=== PATIENT | male | born 1990 | race Caucasian/White ===

== ENCOUNTER 2018-05-16 13:05 | Inpatient (IN) | payer BC ==
[2018-05-16 14:06] VITALS: BMI 23.5
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
[2018-05-16] MEDS ORDERED: ACETAMINOPHEN 325 MG TABLET (FP) PO PRN (16:05)
[2018-05-16] MEDS ORDERED: P-EPHED 60MG/TRIPROLIDI 2.5MG TABLET PO PRN (16:05)
[2018-05-16] MEDS ORDERED: MAG HYDROX/AL HYDROX/SIMETH 30 ML UNIT-DOSE CUP PO PRN (16:05)
[2018-05-16] MEDS ORDERED: MAGNESIUM HYDROX 2400MG/30ML ORAL SUSPENSION 30 ML CUP PO PRN (16:05)
[2018-05-16] MEDS ORDERED: MENTHOL/PHENOL 1 EACH UD MM PRN (16:05)
[2018-05-16] MEDS ORDERED: LOPERAMIDE HCL 2 MG CAPSULE PO PRN (16:05)
[2018-05-16] MEDS ORDERED: MAGNESIUM CITRATE 300 ML BOTTLE PO PRN (16:05)
[2018-05-16] MEDS ORDERED: IBUPROFEN 400 MG TABLET (FP) PO PRN (16:05)
[2018-05-16] MEDS ORDERED: guaiFENesin/D-METHORPHAN HB 10 ML UNIT-DOSE CUPS PO PRN (16:05)
[2018-05-16] MEDS ORDERED: ALBUTEROL SO4 8 GM HFA INHALER IH PRN (16:08)
[2018-05-16] MEDS ORDERED: ALBUTEROL SO4 2.5/IPRATROPIUM 0.5 INH SOL 3 ML VIAL.NEB. NEB PRN (16:09)
[2018-05-16] MEDS ORDERED: METHADONE HCL 10 MG TABLET (FOR DETOX USE ONLY) PO ONE ×2 (17:00→23:00)
[2018-05-16] MEDS ORDERED: diazePAM 5 MG TABLET PO ONE (17:00)
[2018-05-16] MEDS: CYCLOBENZAPRINE HCL 10 MG TABLET (FP) PO PRN (22:17)
[2018-05-16] MEDS: diazePAM 5 MG TABLET PO SCH (22:17)
[2018-05-16] MEDS: THIAMINE HCL 100 MG TABLET (FP) PO SCH (22:18)
[2018-05-16] MEDS: cloNIDine HCL 0.1 MG TABLET PO SCH (22:18)
[2018-05-17 00:28] LABS: URINE APPEARANCE CLEAR; URINE BILIRUBIN NEGATIVE (<2.0 mg/dL); URINE COLOR YELLOW; URINE GLUCOSE (UA) NEGATIVE (NEGATIVE); URINE KETONE TRACE (NEGATIVE); URINE LEUK ESTERASE NEGATIVE (NEGATIVE); URINE NITRITE NEGATIVE (NEGATIVE); URINE PROTEIN NEGATIVE (NEGATIVE); URINE UROBILINOGEN NEGATIVE mg/dL (0.2-1.0)
[2018-05-17] MEDS: diazePAM 5 MG TABLET PO SCH ×3 (05:15→22:17)
[2018-05-17] MEDS ORDERED: METHADONE HCL 10 MG TABLET (FOR DETOX USE ONLY) PO SCH (10:00)
[2018-05-17] MEDS: cloNIDine HCL 0.1 MG TABLET PO SCH ×2 (10:06)
[2018-05-17] MEDS: diazePAM 5 MG TABLET PO PRN ×2 (10:06→16:57)
[2018-05-17] MEDS: PRENATAL VITAMINS W/ FOLIC ACID TABLET (FP) PO SCH (10:06)
--- NOTE | 2018-05-17 11:29 | EKG ---
Test Reason : Blood Pressure : / mmHG Vent. Rate : 069 BPM Atrial Rate : 069 BPM P-R Int : 154 ms QRS Dur : 092 ms QT Int : 396 ms P-R-T Axes : 077 067 059 degrees QTc Int : 424 ms SINUS RHYTHM WITH MARKED SINUS ARRHYTHMIA OTHERWISE NORMAL ECG NO PREVIOUS ECGS AVAILABLE Confirmed by KEDAR HART, ALTAF ([id number]) on 05/17/2018 11:28:51 AM Referred By: Confirmed By:ALTAF THACKER MD
--- NOTE | 2018-05-17 12:17 | PN ---
[facility] CIWA - CIWA Score Nausea/Vomitin Muscle Tremors: 4-Moderate,w/Arms Extend Anxiety: 4-Mod. Anxious/Guarded Agitation: 4-Moderately Restless Paroxysmal Sweats: 3 Orientation: 0-Oriented Tacttile Disturbances: 0-None Auditory Disturbances: 0-None Visual Disturbances: 0-None Headache: 0-None Present CIWA-Ar Total Score: 17 S COWS - Scale Resting Pulse: 0= [place] 80 or Below Sweatin=Flushed/Facial Moisture Restless Observation: 3= Extraneous Movement Pupil Size: 0= Normal to Room Light Bone or Joint Aches: 2= Severe Diffuse Aches Runny Nose/ Eye Tearin= Runny Nose/Eyes GI Upset > 30mins: 2= Nausea/Diarrhea Tremor Observation of Outstretched Hands: 2= Slight Tremor Visible Yawning Observation: 1= 1-2x During Session Anxiety or Irritability: 2=Irritable/Anxious Goose Flesh Skin: 0=Smooth Skin COWS Score: 16 [facility] Progress Note (SOAP) Subjective: Sweating, body aches, chills, interrupted sleep Objective: 05/17/18 12:16 Last Vital Signs Temp Pulse Resp BP Pulse Ox 96.3 F L 61 18 87/58 L 05/17/18 09:21 05/17/18 09:21 05/17/18 09:21 05/17/18 09:21 Hypotension: 87/58 Laboratory Tests 05/16/18 23:00 Urine Color Yellow Urine Appearance Clear Urine pH 6.0 Ur Specific [place] 1.031 Urine Protein Negative Urine Glucose (UA) Negative Urine Ketones Trace H Urine Blood Negative Urine Nitrite Negative Urine Bilirubin Negative Urine Urobilinogen Negative Ur Leukocyte Esterase Negative UA result reviewed CBC/CMP/RPR result in progress Assessment: 05/17/18 12:17 Withdrawal symptoms Hypotension noted Plan: Continue detox Hypotension: asymptomatic, encouraged PO water intake, changed clonidine 0.1mg PO BID to q8hr prn (hold if b/p <110/70)
[2018-05-17 14:17] LABS: HEMATOCRIT 39.1 % (35.4-49); HEMOGLOBIN 12.8 GM/dL (11.7-16.9); MCH 27.3 pg (25.7-33.7); MCHC 32.7 g/dl (32.0-35.9); MEAN CELL VOLUME 83.3 fl (80-96); PLATELET COUNT 279 K/MM3 (134-434); RBC 4.69 M/mm3 (4.00-5.60)
[2018-05-17 15:02] LABS: ALBUMIN 3.6 g/dl (3.4-5.0); ALK PHOS 60 U/L (45-117); ANION GAP 6 MMOL/L (8-16); BILIRUBIN,TOTAL 0.3 mg/dL (0.2-1); BLOOD UREA NITROGEN 21 mg/dL (7-18); CALCIUM 8.8 mg/dL (8.5-10.1); CHLORIDE 105 mmol/L (98-107); CO2 30 mmol/L (21-32); CREATININE 0.8 mg/dL (0.55-1.3); GLUCOSE,RANDOM 83 mg/dL (74-106); POTASSIUM 4.3 mmol/L (3.5-5.1); SGOT/AST 15 U/L (15-37); SGPT/ALT 15 U/L (13-61); SODIUM 141 mmol/L (136-145); TOT PROT 6.5 g/dl (6.4-8.2)
[2018-05-17] MEDS ORDERED: cloNIDine HCL 0.1 MG TABLET PO PRN (16:00)
[2018-05-17] MEDS: THIAMINE HCL 100 MG TABLET (FP) PO SCH (22:17)
[2018-05-17] MEDS: MELATONIN 5 MG TABLETS PO PRN (22:17)
[2018-05-18] MEDS: CYCLOBENZAPRINE HCL 10 MG TABLET (FP) PO PRN ×2 (04:26→14:15)
[2018-05-18] MEDS: diazePAM 5 MG TABLET PO PRN ×4 (04:26→23:47)
[2018-05-18] MEDS ORDERED: METHADONE HCL 5 MG TABLET (FOR DETOX USE ONLY) PO SCH (10:00)
[2018-05-18] MEDS: diazePAM 5 MG TABLET PO SCH ×2 (10:19→22:26)
[2018-05-18] MEDS: PRENATAL VITAMINS W/ FOLIC ACID TABLET (FP) PO SCH (10:19)
--- NOTE | 2018-05-18 12:42 | PN ---
S CIWA - CIWA Score Nausea/Vomitin Muscle Tremors: 3 Anxiety: 3 Agitation: 3 Paroxysmal Sweats: 3 Orientation: 0-Oriented Tacttile Disturbances: 0-None Auditory Disturbances: 0-None Visual Disturbances: 0-None Headache: 1-Very Mild CIWA-Ar Total Score: 15 [facility] COWS - Scale Resting Pulse: 0= [place] 80 or Below Sweatin= Chills/Flushing Restless Observation: 3= Extraneous Movement Pupil Size: 0= Normal to Room Light Bone or Joint Aches: 2= Severe Diffuse Aches Runny Nose/ Eye Tearin= Runny Nose/Eyes GI Upset > 30mins: 1= Stomach Cramp Tremor Observation of Outstretched Hands: 2= Slight Tremor Visible Yawning Observation: 1= 1-2x During Session Anxiety or Irritability: 2=Irritable/Anxious Goose Flesh Skin: 0=Smooth Skin COWS Score: 14 S Progress Note (SOAP) Subjective: Sweating, body ache, interrupted sleep Objective: 05/18/18 12:41 Last Vital Signs Temp Pulse Resp BP Pulse Ox 96.9 F L 69 18 109/68 05/18/18 09:08 05/18/18 09:08 05/18/18 09:08 05/18/18 09:08 Laboratory Tests 05/16/18 05/17/18 05/17/18 23:00 07:15 07:15 WBC 8.0 RBC 4.69 Hgb 12.8 Hct 39.1 MCV 83.3 MCH 27.3 MCHC 32.7 RDW 14.0 Plt Count 279 MPV 8.0 Sodium 141 Potassium 4.3 Chloride 105 Carbon Dioxide 30 Anion Gap 6 L BUN 21 H Creatinine 0.8 Creat Clearance w eGFR > 60 Random Glucose 83 Calcium 8.8 Total Bilirubin 0.3 AST 15 ALT 15 Alkaline Phosphatase 60 Total Protein 6.5 Albumin 3.6 Urine Color Yellow Urine Appearance Clear Urine pH 6.0 Ur Specific [place] 1.031 Urine Protein Negative Urine Glucose (UA) Negative Urine Ketones Trace H Urine Blood Negative Urine Nitrite Negative Urine Bilirubin Negative Urine Urobilinogen Negative Ur Leukocyte Esterase Negative RPR Titer 05/17/18 07:15 WBC RBC Hgb Hct MCV MCH MCHC RDW Plt Count MPV Sodium Potassium Chloride Carbon Dioxide Anion Gap BUN Creatinine Creat Clearance w eGFR Random Glucose Calcium Total Bilirubin AST ALT Alkaline Phosphatase Total Protein Albumin Urine Color Urine Appearance Urine pH Ur Specific [place] Urine Protein Urine Glucose (UA) Urine Ketones Urine Blood Urine Nitrite Urine Bilirubin Urine Urobilinogen Ur Leukocyte Esterase RPR Titer Nonreactive Labs reviewed Assessment: 05/18/18 12:42 Withdrawal symptoms Plan: Continue detox Encourage PO water intake
[2018-05-18] MEDS: THIAMINE HCL 100 MG TABLET (FP) PO SCH (22:26)
[2018-05-18] MEDS: MELATONIN 5 MG TABLETS PO PRN (22:27)
[2018-05-19] MEDS: diazePAM 5 MG TABLET PO PRN ×2 (03:47→09:02)
[2018-05-19] MEDS: CYCLOBENZAPRINE HCL 10 MG TABLET (FP) PO PRN (03:47)
[2018-05-19 06:20] VITALS: BP 119/77; PULSE 70; TEMP 96.3
--- NOTE | 2018-05-19 10:42 | DS ---
[facility] Detox Discharge Summary Admission Date: 05/16/18 Discharge Date: 05/19/18 - History Present History: Cannabis Dependence, Cocaine Dependence, Opioid Dependence, Sedative Dependence Additional Comments: Patient decided to leave AMA. [employer] spoke with patient and encouraged him to complete detox but he demanded to leave stating that he feels much better and that he always detoxed himself and this is his first inpatient detox and wants to leave. Patient educated on calling 911 if any withdrawal symptoms or feeling sick and to see his PCP within 3 days. Patient verbalized understanding. Pertinent Past History: Asthma Cannabis dependence Cocaine dependence Opioid dependence Sedative dependence Nicotine dependence - Physical Exam Results Vital Signs: Vital Signs Temperature 96.3 F L 05/19/18 06:19 Pulse Rate 70 05/19/18 06:19 Respiratory Rate 18 05/19/18 06:19 Blood Pressure 119/77 05/19/18 06:19 O2 Sat by Pulse Oximetry (%) Pertinent Admission Physical Exam Findings: Withdrawal symptoms Laboratory Tests 05/16/18 05/17/18 05/17/18 23:00 07:15 07:15 WBC 8.0 RBC 4.69 Hgb 12.8 Hct 39.1 MCV 83.3 MCH 27.3 MCHC 32.7 RDW 14.0 Plt Count 279 MPV 8.0 Sodium 141 Potassium 4.3 Chloride 105 Carbon Dioxide 30 Anion Gap 6 L BUN 21 H Creatinine 0.8 Creat Clearance w eGFR > 60 Random Glucose 83 Calcium 8.8 Total Bilirubin 0.3 AST 15 ALT 15 Alkaline Phosphatase 60 Total Protein 6.5 Albumin 3.6 Urine Color Yellow Urine Appearance Clear Urine pH 6.0 Ur Specific [place] 1.031 Urine Protein Negative Urine Glucose (UA) Negative Urine Ketones Trace H Urine Blood Negative Urine Nitrite Negative Urine Bilirubin Negative Urine Urobilinogen Negative Ur Leukocyte Esterase Negative RPR Titer 05/17/18 07:15 WBC RBC Hgb Hct MCV MCH MCHC RDW Plt Count MPV Sodium Potassium Chloride Carbon Dioxide Anion Gap BUN Creatinine Creat Clearance w eGFR Random Glucose Calcium Total Bilirubin AST ALT Alkaline Phosphatase Total Protein Albumin Urine Color Urine Appearance Urine pH Ur Specific [place] Urine Protein Urine Glucose (UA) Urine Ketones Urine Blood Urine Nitrite Urine Bilirubin Urine Urobilinogen Ur Leukocyte Esterase RPR Titer Nonreactive Labs reviewed - Medication Discharge Medications: Ambulatory Orders Albuterol Sulfate Inhaler - [Ventolin Hfa Inhaler -] 2 inh PO Q4H 10/23/18 - Diagnosis (1) Asthma Status: Chronic (2) Cannabis dependence Status: Chronic (3) Cocaine dependence Status: Chronic (4) Nicotine dependence Status: Chronic (5) Opioid dependence with withdrawal Status: Acute (6) Uncomplicated sedative, hypnotic or anxiolytic withdrawal Status: Acute (7) Dehydration Status: Acute - AMA Did Patient Leave Against Medical Advice: Yes (Patient instructed to call 911 if feeling sick or withdrawal symptoms)
[2018-05-20] MEDS ORDERED: diazePAM 5 MG TABLET PO SCH (10:00)
[2018-05-20] MEDS ORDERED: METHADONE HCL 10 MG TABLET (FOR DETOX USE ONLY) PO SCH (10:00)
[2018-05-21] MEDS ORDERED: METHADONE HCL 5 MG TABLET (FOR DETOX USE ONLY) PO SCH (06:00)
== END 2018-05-19 09:43 | disposition left against medical advice (07) | DRG 770 ==
LOC: YASAS 13:05 → Y3N 16:24
PROC: HZ2ZZZZ Detoxification Services for Substance Abuse Treatment (ICD-10-PCS; principal; 2018-05-16)
DX: F11.23 Opioid dependence with withdrawal (principal); F13.230 Sedative, hypnotic or anxiolytic dependence with withdrawal, uncomplicated; F14.20 Cocaine dependence, uncomplicated; F12.20 Cannabis dependence, uncomplicated; F17.210 Nicotine dependence, cigarettes, uncomplicated; E86.0 Dehydration; J45.909 Unspecified asthma, uncomplicated; I95.9 Hypotension, unspecified; R63.4 Abnormal weight loss; Z68.23 Body mass index [BMI] 23.0-23.9, adult; Z87.81 Personal history of (healed) traumatic fracture; Z91.013 Allergy to seafood
CPT/HCPCS: 36415; 80053; 81003; 85027; 86593; 93005; 93010; J0735

== ENCOUNTER 2021-02-23 12:07 | Inpatient (IN) | payer BC ==
[2021-02-23 12:36] VITALS: BMI 25.9
[2021-02-23] MEDS ORDERED: ACETAMINOPHEN 325 MG TABLET (FP) PO PRN (14:31)
[2021-02-23] MEDS ORDERED: MENTHOL/PHENOL 1 EACH UD MM PRN (14:31)
[2021-02-23] MEDS ORDERED: cloNIDine HCL 0.1 MG TABLET PO PRN (14:31)
[2021-02-23] MEDS ORDERED: ONDANSETRON *ODT* 4 MG TABLET SL PRN (14:31)
[2021-02-23] MEDS ORDERED: MAGNESIUM HYDROX 2400MG/30ML ORAL SUSPENSION 30 ML CUP PO PRN (14:31)
[2021-02-23] MEDS ORDERED: methaDONE HCL 10 MG TABLET (FOR DETOX USE ONLY) PO ONE (14:31)
[2021-02-23] MEDS ORDERED: MAG HYDROX/AL HYDROX/SIMETH 30 ML UNIT-DOSE CUP PO PRN (14:31)
[2021-02-23] MEDS ORDERED: MAGNESIUM CITRATE 300 ML BOTTLE PO PRN (14:31)
[2021-02-23] MEDS ORDERED: BISMUTH SUBSALICYLATE 262 MG/15 ML BTL PO PRN (14:31)
[2021-02-23] MEDS ORDERED: ALBUTEROL SO4 HFA INHALER IH PRN (15:58)
[2021-02-23 16:05] LABS: ALBUMIN 4.8 g/dl (3.4-5.0); CALCIUM 9.4 mg/dL (8.5-10.1)
[2021-02-23 16:06] LABS: BLOOD UREA NITROGEN 19.8 mg/dL (7-18)
[2021-02-23 16:09] LABS: CREATININE 0.9 mg/dL (0.55-1.3)
[2021-02-23 16:10] LABS: BILIRUBIN,TOTAL 0.7 mg/dL (0.2-1); TOT PROT 8.2 g/dl (6.4-8.2)
[2021-02-23] MEDS: METHOCARBAMOL 500 MG TABLET PO PRN (16:12)
[2021-02-23] MEDS: PRENATAL VITAMINS W/ FOLIC ACID TABLET (FP) PO SCH (16:12)
[2021-02-23 16:17] LABS: HEMATOCRIT 39.6 % (35.4-49); MCH 28.2 pg (25.7-33.7); MCHC 35.4 g/dl (32.0-35.9); MEAN CELL VOLUME 79.7 fl (80-96); PLATELET COUNT 318 10^3/uL (134-434); RBC 4.97 M/mm3 (4.00-5.60); WHITE BLOOD COUNT 9.3 K/mm3 (4.0-10.0)
[2021-02-23] MEDS: hydrOXYzine PAMOATE 25 MG CAPSULE (FP) PO SCH ×2 (18:12→22:47)
[2021-02-23] MEDS: IBUPROFEN 400 MG TABLET (FP) PO PRN (22:45)
[2021-02-23] MEDS: THIAMINE HCL 100 MG TABLET (FP) PO SCH (22:47)
[2021-02-23] MEDS: MELATONIN 5 MG TABLETS PO SCH (22:47)
[2021-02-24] MEDS: ACETAMINOPHEN 325 MG TABLET (FP) PO PRN ×2 (05:55→19:44)
[2021-02-24] MEDS: hydrOXYzine PAMOATE 25 MG CAPSULE (FP) PO SCH ×5 (05:55→22:23)
[2021-02-24] MEDS ORDERED: methaDONE HCL 10 MG TABLET (FOR DETOX USE ONLY) ONE (09:28)
[2021-02-24] MEDS: PRENATAL VITAMINS W/ FOLIC ACID TABLET (FP) PO SCH (10:14)
[2021-02-24 12:24] LABS: HIV INTERPRETATION NEGATIVE (NEGATIVE)
[2021-02-24] MEDS: IBUPROFEN 400 MG TABLET (FP) PO PRN (14:07)
[2021-02-24] MEDS: MELATONIN 5 MG TABLETS PO SCH (22:24)
[2021-02-24] MEDS: THIAMINE HCL 100 MG TABLET (FP) PO SCH (22:24)
[2021-02-24] MEDS: diazePAM 5 MG TABLET PO PRN (22:27)
[2021-02-24] MEDS: METHOCARBAMOL 500 MG TABLET PO PRN (22:27)
[2021-02-25] MEDS: IBUPROFEN 400 MG TABLET (FP) PO PRN ×2 (00:52→12:23)
[2021-02-25] MEDS: diazePAM 5 MG TABLET PO PRN ×4 (05:42→18:32)
[2021-02-25] MEDS: hydrOXYzine PAMOATE 25 MG CAPSULE (FP) PO SCH ×2 (07:29→09:12)
[2021-02-25] MEDS: METHOCARBAMOL 500 MG TABLET PO PRN ×2 (09:12→17:07)
[2021-02-25] MEDS: PRENATAL VITAMINS W/ FOLIC ACID TABLET (FP) PO SCH (09:14)
[2021-02-25] MEDS ORDERED: methaDONE HCL 10 MG TABLET (FOR DETOX USE ONLY) PO ONE (10:00)
[2021-02-25] MEDS ORDERED: LIDOCAINE VISCOUS 2% ORAL/TOP 100 ML BOTTLE MM PRN (11:17)
[2021-02-25] MEDS ORDERED: hydrOXYzine PAMOATE 25 MG CAPSULE (FP) PO PRN (11:25)
[2021-02-25 13:21] VITALS: PULSE 84
[2021-02-25] MEDS: ACETAMINOPHEN 325 MG TABLET (FP) PO PRN (17:07)
[2021-02-25] MEDS ORDERED: AMOX TR/POT CLAV 500MG/125MG TABLETS (FP) PO SCH (17:30)
[2021-02-25 17:56] VITALS: BP 106/69; TEMP 97.1
[2021-02-25] MEDS ORDERED: LIDOCAINE 5% TOPICAL PATCH TP SCH (18:15)
[2021-02-25] MEDS ORDERED: LIDOCAINE PATCH REMOVAL MC SCH (22:00)
[2021-02-27] MEDS ORDERED: methaDONE HCL 10 MG TABLET (FOR DETOX USE ONLY) PO ONE (10:00)
== END 2021-02-25 19:47 | disposition left against medical advice (07) | DRG 770 ==
LOC: YASAS 12:07 → Y3N 15:05
PROVIDERS: ADMIT Allergy & Immunology; ATTEND Allergy & Immunology
PROC: HZ2ZZZZ Detoxification Services for Substance Abuse Treatment (ICD-10-PCS; principal; 2021-02-23)
DX: F11.23 Opioid dependence with withdrawal (principal); F13.230 Sedative, hypnotic or anxiolytic dependence with withdrawal, uncomplicated; F12.20 Cannabis dependence, uncomplicated; F17.210 Nicotine dependence, cigarettes, uncomplicated; G40.909 Epilepsy, unspecified, not intractable, without status epilepticus; J45.909 Unspecified asthma, uncomplicated; E86.0 Dehydration; R63.4 Abnormal weight loss; K02.9 Dental caries, unspecified; M54.5 Low back pain; G89.29 Other chronic pain; Z91.013 Allergy to seafood
CPT/HCPCS: 36415; 80053; 85027; 86780; 87389; C9803; U0003; U0005